=== PATIENT | male | born 1970 | race Caucasian/White ===

== ENCOUNTER → 2021-03-06 | Emergency (ER) | payer MEDICAID ==
[~2021-03-06] VITALS: Ht 175.3 cm; Wt 72.6 kg
--- NOTE | 2021-03-06 08:44 | NUR ---
Jannette harrison in [facility] - 03/06/21 at 0942 by EPIFANIO Patient discharged to home in stable condition. Written and verbal after care instructions given. Patient verbalizes understanding of instruction.
[2021-03-06 08:48] VITALS: BP 150/118
--- NOTE | 2021-03-06 08:48 | NUR ---
flu sx,body ache,body malaise x 3 days
--- NOTE | 2021-03-06 08:58 | NUR ---
COVID TEST COLLECTED AND SENT. Patient discharged to home in stable condition. Written and verbal after care instructions given. Patient verbalizes understanding of instruction.
--- NOTE | 2021-03-06 11:19 | NUR ---
CALLED LEFT TO CALL US BACK.
== END | disposition home or self-care (01) ==
LOC: ER 08:41
DX: U07.1 COVID-19 (principal); R05.9 Cough, unspecified; M79.10 Myalgia, unspecified site
CPT/HCPCS: 87426; 99283; C9803